=== PATIENT | male | born 1975 | race African-American/Black ===

== ENCOUNTER 2016-09-09 18:42 | Emergency (ER) | payer SELFPAY ==
[~2016-09-09] VITALS: Ht 185.4 cm; Wt 109.0 kg
[2016-09-09] MEDS ORDERED: SODIUM CHLORIDE 0.9% 1,000 ML IV ONE (23:36)
[2016-09-10 00:30] LABS: BASOPHILS % 0.3 % (0.0-2.0); HEMATOCRIT. 40.4 % (42.0-52.0); MEAN CORPUSCULAR HEMOGLOBIN 28.1 pg (28.0-32.0); MEAN CORPUSCULAR VOLUME 80.9 fL (80.0-94.0); MEAN PLATELET VOLUME 8.1 fl (7.4-10.4); MONOCYTES % 2.4 % (2.0-8.0); NEUTROPHILS % 89.3 % (40.0-76.0); PLATELET 206 x1000/uL (130-400)
[2016-09-10 00:37] LABS: CHLORIDE 104 mEq/L (98-107)
[2016-09-10 00:40] LABS: PROTHROMBIN TIME 10.6 sec
[2016-09-10 00:46] LABS: CARBON DIOXIDE 26 mEq/L (21-32)
[2016-09-10 03:23] LABS: CLARITY URINE CLEAR (CLEAR); COLOR URINE YELLOW (YELLOW); GLUCOSE URINE NEGATIVE (NEGATIVE); KETONES URINE 2+ (NEGATIVE); LEUKOCYTE ESTERASE URINE NEGATIVE (NEGATIVE); NITRITE URINE NEGATIVE (NEGATIVE); OCCULT BLOOD URINE 3+ (NEGATIVE); PH URINE 5.5 (4.5-8.0); PROTEIN URINE 2+ (NEGATIVE); SPECIFIC GRAVITY URINE 1.029 (1.005-1.030); UROBILINOGEN URINE 0.2 E.U./dL (0.2-1.0)
[2016-09-10 07:01] VITALS: BP 138/66
== END 2016-09-10 07:02 | disposition home or self-care (01) ==
LOC: ER 18:53
DX: R53.1 Weakness (principal)
CPT/HCPCS: 36415; 71010; 80053; 81001; 83605; 85025; 85610; 87040; 93005; 96360; 96361; 99291; J7030; Z7610